=== PATIENT | male | born 1955 | race Caucasian/White ===

== ENCOUNTER 2020-05-14 18:25 | Emergency (ER) | payer BC ==
[2020-05-14] MEDS: SODIUM CHLORIDE 0.9% 1000ML 1,000 ML IVS PRN (19:09)
[2020-05-14] MEDS: SODIUM CHLORIDE 0.9% (FLUSH) 10 ML SYG IV PRN (19:10)
[2020-05-14] MEDS: MORPHINE SULFATE INJ 10 MG/ML VIAL IV ONE (19:10)
[2020-05-14] MEDS: ONDANSETRON INJ 4 MG/2 ML VIAL IV ONE (19:10)
--- NOTE | 2020-05-14 19:19 | CT ---
CT ABDOMEN PELVIS WITHOUT IV CONTRAST HISTORY: Left lower quadrant pain. COMPARISON: None. TECHNIQUE: CT scan of the abdomen and pelvis was performed without IV contrast. This exam was performed according to our departmental dose-optimization program, which includes automated exposure control, adjustment of the mA and/or kV according to patient size and/or use of iterative reconstruction technique. FINDINGS: The lung bases are clear. No pleural or pericardial effusions. There is no hiatal hernia. There is a 5 mm obstructing stone in the distal left ureter with mild left hydronephrosis and inflammatory changes. Additional tiny nonobstructing stones in both kidneys. The liver, gallbladder, spleen, pancreas, adrenal glands, and pelvic organs are unremarkable. There has been a prior appendectomy. The remainder of the small and large bowel, including the stomach, are normal. No intraperitoneal free fluid or free air is seen. Prior fixation of the lumbosacral spine. There are mild degenerative changes of the spine. The aorta is normal in caliber. No abnormal hernia is evident. IMPRESSION: 5 mm obstructing stone in the distal left ureter with mild left hydronephrosis and inflammatory changes. Electronically signed by: Moisés Spears MD 05/14/2020 7:18 PM CDT
[2020-05-14 19:23] VITALS: TEMP 97.1
--- NOTE | 2020-05-14 19:48 | ED.PDOC ---
History of Present Illness - General Chief Complaint: Abdominal Pain Stated Complaint: L flank pain Time Seen by Provider: 05/14/20 18:42 Information Source: patient, RN notes reviewed, Vital Signs reviewed Exam Limitations: no limitations - History of Present Illness Initial Comments: This is a 64-year-old male with history of hypertension presenting to the emergency department with left lower quadrant and left flank pain that began this afternoon [place] He states he felt like "he needed to have a BM." He states his last BM was yesterday, states it was loose but not diarrhea. He states he been having daily BMs without any difficulty. He denies any blood in stool. He denies any fever. He had a colonoscopy performed proximally 6 months ago and was told he had diverticulosis at that time. No history of diverticulitis. No history of kidney stones. He denies any dysuria, hematuria. He does have a history of BPH and states he does have some nocturnal urinary frequency, but no hesitancy. Review of Systems - Review of Systems Constitutional: Denies: chills, fever EENTM: Denies: nose congestion, throat pain Respiratory: Denies: cough, short of breath Cardiology: Denies: chest pain, edema, palpitations Gastrointestinal/Abdominal: States: abdominal pain. Denies: constipation, diarrhea, nausea, vomiting Genitourinary: Denies: discharge, dysuria, hematuria Musculoskeletal: Denies: back pain, joint pain, joint swelling, muscle stiffness, neck pain Skin: Denies: lesions, rash Neurological: Denies: headache, paresthesia Endocrine: States: no symptoms reported Hematologic/Lymphatic: States: no symptoms reported Past Medical History (General) - Patient Medical History Hx Stroke: No Hx of COPD: No Hx Cardiac Disorders: No Hx Hypertension: No Hx Diabetes: No Surgical History: appendectomy - Vaccination History Hx Influenza Vaccination: No Hx Pneumococcal Vaccination: No - Social History Hx Tobacco Use: Yes Hx Alcohol Use: Yes Hx Substance Use: No Hx Substance Use Treatment: No Hx Depression: No - Female History Patient is a Female of Child Bearing Age (10 -59 yrs old): No Patient : No Family Medical History - Family History Mother Hx Family Diabetes: Yes Physical Exam - Physical Exam General Appearance: Alert, Comfortable, Obese Eyes, Ears, Nose, Throat Exam: normal ENT inspection, pharynx normal Neck: full range of motion, supple Respiratory: chest non-tender, lungs clear, normal breath sounds, no respiratory distress, no accessory muscle use Cardiovascular/Chest: normal peripheral pulses, regular rate, rhythm, no edema, no gallop, no JVD Peripheral Pulses: No deficit, 2+ Gastrointestinal/Abdominal: soft, no organomegaly, tenderness - Left lower quadrant Back Exam: normal inspection, no CVA tenderness, no vertebral tenderness Extremity: non-tender, normal inspection Neurologic: alert, oriented x 3 Skin Exam: normal color, warm/dry Progress - Progress Progress: 05/14/20 20:46 Rechecked. Discussed lab, CT findings and diagnosis of kidney stone. Pain is well controlled at this time, tolerating p.o., vital signs normal. No evidence of infected stone. Discussed low protein diet, importance of adequate hydration, and discussed need for urine strainer. He lives in [place] and will be returning back there in 3 days time. I recommended he follow-up with a urologist in [place] when he returns if pain is not improved and the stone is not passed. Strict warnings were given to return the emergency room for increasing pain, intractable vomiting, fever, or any other concerns. All questions answered. Patient family are comfortable plan for discharge home. DDX: Diverticulitis, kidney stone, SBO, constipation MDM: Patient presenting with left flank pain with associated urgency with bowel movements. He does have a history of diverticulosis on colonoscopy that was performed several months ago. He had a loose stool earlier today but has been having regular bowel movements. No blood in his stool.UA is clear. Initially felt symptoms most likely due to diverticulitis, no diverticulitis noted on CT, he does have a 5 mm left ureteral stone with mild hydronephrosis. Pain well controlled, tolerating p.o., vital signs normal. No indication for admission or transfer, no evidence of infected stone at this time. Will discharge home with pain control, antiemetics, anti-inflammatories and warnings to return for worsening pain, fever, intractable vomiting, any other concerns Jarek Segura DO [id number] 05/14/20 21:13 - Results/Orders Results/Orders: CT ABDOMEN PELVIS WITHOUT IV CONTRAST HISTORY: Left lower quadrant pain. COMPARISON: None. TECHNIQUE: CT scan of the abdomen and pelvis was performed without IV contrast. This exam was performed according to our departmental dose-optimization program, which includes automated exposure control, adjustment of the mA and/or kV according to patient size and/or use of iterative reconstruction technique. FINDINGS: The lung bases are clear. No pleural or pericardial effusions. There is no hiatal hernia. There is a 5 mm obstructing stone in the distal left ure ter with mild left hydronephrosis and inflammatory changes. Additional tiny nonobstructing stones in both kidneys. The liver, gallbladder, spleen, pancreas, adrenal glands, and pelvic organs are unremarkable. There has been a prior appendectomy. The remainder of the small and large bowel, including the stomach, are normal. No intraperitoneal free fluid or free air is seen. Prior fixation of the lumbosacral spine. There are mild degenerative changes of the spine. The aorta is normal in caliber. No abnormal hernia is evident. IMPRESSION: 5 mm obstructing stone in the distal left ureter with mild left hydronephrosis and inflammatory changes. Electronically signed by: Moisés Spears MD 05/14/2020 7:18 PM CDT 05/14/20 18:42 Sodium Chloride 0.9% (Flush) [Saline Flush Syringe] 10 ml IV PRN PRN Sodium Chloride 0.9% 1000ML [Ns 1000 ml] 1,000 ml IVS .QD EKG Assessment ONCE 05/14/20 18:45 EKG STAT Laboratory Results - last 24 hr 05/14/20 05/14/20 05/14/20 18:52 18:52 19:40 WBC 6.2 RBC 5.14 Hgb 14.7 Hct 44.0 MCV 85.5 MCH 28.6 MCHC 33.5 RDW 13.7 Plt Count 159 MPV 8.5 Absolute Neuts (auto) 4.20 Absolute Lymphs (auto) 1.30 Absolute Monos (auto) 0.70 Absolute Eos (auto) 0.10 Absolute Basos (auto) 0.00 Neutrophils % 67.0 Lymphocytes % 20.5 Monocytes % 11.0 H Eosinophils % 1.0 Basophils % 0.5 Sodium 139 Potassium 3.5 L Chloride 108 Carbon Dioxide 19 L Anion Gap 15.5 BUN 17 Creatinine 1.02 BUN/Creatinine Ratio 16.7 Random Glucose 126 H Serum Osmolality 280.6 Calcium 8.9 Total Bilirubin 0.9 Direct Bilirubin 0.2 Indirect Bilirubin 0.7 AST 35 ALT 33 Alkaline Phosphatase 39 L Serum Total Protein 7.5 Albumin 4.9 Lipase 29 Urine Color Yellow Urine Appearance Clear Urine pH 5.0 Ur Specific [place] 1.025 Urine Protein Negative Urine Glucose (UA) Negative Urine Ketones 15 H Urine Blood Negative Urine Nitrite Negative Urine Bilirubin Negative Urine Urobilinogen 1.0 Ur Leukocyte Esterase Negative Urine RBC 0 Urine WBC 1-3 Ur Epithelial Cells 0-1 Urine Bacteria 0 Urine Mucus Trace Departure - Departure Clinical Impression: Acute left flank pain, Ureterolithiasis, Ureteral colic Time of Disposition: 21:04 Disposition: Discharge to Home or Self Care Condition: Good Departure Forms: ED Discharge - Pt. Copy, Patient Portal Self Enrollment Instructions: DI for Abdominal Pain-Adult, Kidney Stones in Adults, Low Protein Diet Diet: other - Low protein diet Activity: increase activity as tolerated Prescriptions: Hydrocodone-Acetaminophen [Pierson 5-325 mg] 1 - 2 tab PO Q6HR PRN #20 tab PRN Reason: Moderate To Severe Pain Ondansetron Odt [Zofran ODT] 4 - 8 mg PO Q6HR PRN #12 tab PRN Reason: Nausea Ibuprofen [Motrin] 600 mg PO Q6H PRN #20 tab PRN Reason: Mild To Moderate Pain Ondansetron Odt (ER Disp) [Zofran ODT (ER DISP)] 8 mg PO ONCE #3 tab Home Medications: Ambulatory Orders Hydrocodone-Acetaminophen [Pierson 5-325 mg] 1 - 2 tab PO Q6HR PRN #20 tab 05/14/20 Ibuprofen [Motrin] 600 mg PO Q6H PRN #20 tab 05/14/20 Ondansetron Odt (ER Disp) [Zofran ODT (ER DISP)] 8 mg PO ONCE #3 tab 05/14/20 Ondansetron Odt [Zofran ODT] 4 - 8 mg PO Q6HR PRN #12 tab 05/14/20 Additional Instructions: Do not drive, operate machinery, operate power tools, drivable while taking pain medication as it will make you sleepy and impaired judgment. Return to the emergency room immediately for worsening pain, intractable vomiting, fever, or any other concerns. Follow-up with a urologist when you return home to [place] if pain is not improving.
[2020-05-14] MEDS: KETOROLAC TROMETHAMINE INJ 30 MG/ML VIAL IV ONE (21:02)
[2020-05-14] MEDS: HYDROcodone 5MG/APAP 325MG 1 EA TAB PO ONE (21:02)
[2020-05-14 21:08] VITALS: BP 142/74; O2SAT 99
[2020-05-14] MEDS: ONDANSETRON ODT (ER DISP) 8 MG TAB PO ONE (21:12)
== END 2020-05-14 21:20 | disposition home or self-care (01) ==
LOC: ER 18:25
DX: N20.1 Calculus of ureter (principal); R10.9 Unspecified abdominal pain; E66.9 Obesity, unspecified; F17.200 Nicotine dependence, unspecified, uncomplicated
CPT/HCPCS: 74176; 80048; 80076; 81001; 83690; 85025; 93005; A4216; J1885; J2270; J2405; J7030